=== PATIENT | female | born 1970 | race African-American/Black ===

== ENCOUNTER 2018-01-17 11:09 | Emergency (ER) | payer BC ==
--- NOTE | 2018-01-17 13:19 | EDM.PDOC ---
Scribed by Marie Gomez 01/17/18 [id number] for Grayson Dang MD ED HPI GENERAL MEDICAL PROBLEM - General Chief Complaint: FISHER CLAM Problem Stated Complaint: PG, SPOTTING Time Seen by Provider: 01/17/18 11:44 Source of Information: Reports: Patient, RN, RN Notes Reviewed History Limitations: Reports: No Limitations - History of Present Illness INITIAL COMMENTS - FREE TEXT/NARRATIVE: Patient is aG4,P3, 0-0, L3 with complaint of onset of spotting vaginal blood last evening. Patient states amount is like "dime size" on pad, but not every pad. Also small smear of blood on toilet paper after urination. Patient seen by Dr. Maria almost 2 weeks and had an ultrasound. LMP was 12-18-17. Denies nausea, vomiting,abdominal pain, cramps, contractions, diarrhea or constipation. Onset Date: 01/16/18 Severity: Mild - Related Data Allergies Allergy/AdvReac Type Severity Reaction Status Date / Time Penicillins Allergy Unknown Rash Verified 01/17/18 11:26 Home Meds: Home Meds Labetalol HCl [Labetalol] 60 mg PO BID 01/17/18 [History] Past Medical History Cardiovascular History: Reports: Hypertension FISHER CLAM History: Reports: - Past Surgical History Musculoskeletal Surgical History: Reports: Carpal Tunnel Social & Family History - Family History Family Medical History: Noncontributory - Tobacco Use Smoking Status *Q: Never Smoker - Caffeine Use Caffeine Use: Reports: None - Recreational Drug Use Recreational Drug Use: No ED ROS GENERAL - Review of Systems Review Of Systems: ROS reveals no pertinent complaints other than HPI. ED EXAM - Physical Exam Exam: See Below Exam Limited By: No Limitations General Appearance: Alert, WD/WN, No Apparent Distress Head: Atraumatic, Normocephalic Neck: Normal Inspection, Supple, Non-Tender, Full Range of Motion Respiratory/Chest: No Respiratory Distress, Lungs Clear, Normal Breath Sounds, No Accessory Muscle Use, Chest Non-Tender Cardiovascular: Normal Peripheral Pulses, Regular Rate, Rhythm, No Edema, No Gallop, No JVD, No Murmur, No Rub GI/Abdominal Exam: Normal Bowel Sounds, Soft, Non-Tender, No Organomegaly, No Distention, No Abnormal Bruit, No Mass, Pelvis Stable Rectal Exam: Deferred Back Exam: Normal Inspection, Full Range of Motion, NT Extremities: Normal Inspection, Normal Range of Motion, Non-Tender, Normal Capillary Refill, No Pedal Edema Neurological: Alert, Oriented, CN II-XII Intact, Normal Cognition, Normal Gait, Normal Reflexes, No Motor/Sensory Deficits Psychiatric: Normal Affect, Normal Mood Skin Exam: Warm, Dry, Intact, Normal Color, No Rash Course - Vital Signs Last Recorded V/S: Last Vital Signs Temp 36.8 C 01/17/18 11:21 Pulse 81 01/17/18 11:21 Resp 16 01/17/18 11:21 BP 173/98 H 01/17/18 11:21 Pulse Ox 100 01/17/18 11:21 - Orders/Labs/Meds Labs: Laboratory Tests 01/17/18 01/17/18 01/17/18 Range/Units 11:37 11:50 11:50 WBC 4.8 L (5.0-10.0) 10^3/uL RBC 4.10 L (4.2-5.4) 10^6/uL Hgb 12.2 (12.0-16.0) g/dL Hct 36.0 L (37.0-47.0) % MCV 87.8 (80-100) fL MCH 29.8 (27.0-34.0) pg MCHC 33.9 (33.0-35.0) g/dL Plt Count 211 (150-450) 10^3/uL Neut % (Auto) 65.1 (42.2-75.2) % Lymph % (Auto) 21.5 (20.5-50.1) % Bates % (Auto) 9.4 H (2-8) % Eos % (Auto) 3.6 H (1.0-3.0) % Baso % (Auto) 0.4 (0.0-1.0) % HCG, Quant (0-25) mIU/ml Beta HCG, Quant mIU/ml Urine Color Yellow (YELLOW) Urine Appearance Slightly cloudy (CLEAR) Urine pH 6.0 (5.0-9.0) Ur Specific [place] 1.010 (1.005-1.030) Urine Protein Negative (NEGATIVE) Urine Glucose (UA) Negative (NEGATIVE) Urine Ketones Negative (NEGATIVE) Urine Occult Blood Moderate H (NEGATIVE) Urine Nitrite Negative (NEGATIVE) Urine Bilirubin Negative (NEGATIVE) Urine Urobilinogen 0.2 (0.2-1.0) mg/dL Ur Leukocyte Esterase Negative (NEGATIVE) Urine RBC 0-5 /HPF Urine WBC 0-5 (0-5/HPF) /HPF Ur Epithelial Cells Moderate H /HPF Amorphous Sediment Rare (0/HPF) /HPF Urine Bacteria Rare (0-FEW/HPF) /HPF Urine Mucus Rare /LPF Urine Other Blood Type B POSITIVE 01/17/18 Range/Units 11:50 WBC (5.0-10.0) 10^3/uL RBC (4.2-5.4) 10^6/uL Hgb (12.0-16.0) g/dL Hct (37.0-47.0) % MCV (80-100) fL MCH (27.0-34.0) pg MCHC (33.0-35.0) g/dL Plt Count (150-450) 10^3/uL Neut % (Auto) (42.2-75.2) % Lymph % (Auto) (20.5-50.1) % Bates % (Auto) (2-8) % Eos % (Auto) (1.0-3.0) % Baso % (Auto) (0.0-1.0) % HCG, Quant > 1324 H (0-25) mIU/ml Beta HCG, Quant 94726 mIU/ml Urine Color (YELLOW) Urine Appearance (CLEAR) Urine pH (5.0-9.0) Ur Specific [place] (1.005-1.030) Urine Protein (NEGATIVE) Urine Glucose (UA) (NEGATIVE) Urine Ketones (NEGATIVE) Urine Occult Blood (NEGATIVE) Urine Nitrite (NEGATIVE) Urine Bilirubin (NEGATIVE) Urine Urobilinogen (0.2-1.0) mg/dL Ur Leukocyte Esterase (NEGATIVE) Urine RBC /HPF Urine WBC (0-5/HPF) /HPF Ur Epithelial Cells /HPF Amorphous Sediment (0/HPF) /HPF Urine Bacteria (0-FEW/HPF) /HPF Urine Mucus /LPF Urine Other Blood Type Departure - Departure Time of Disposition: 13:15 Disposition: Home, Self-Care 01 Condition: Good Clinical Impression: Bacterial vaginosis, Bleeding in early - Discharge Information Instructions: Threatened Miscarriage, [id number] Forms: ED Department Discharge Additional Instructions: RX: Metronidazole 500mg. Pelvic rest, no sexual activity until evaluated by your doctor in clinic. Call the clinic Friday morning to arrange follow up visit with Dr. Maria. Return to ER if you develop pelvic pain, heavy vaginal bleeding or other emergent concerns. I have read and agree with the documentation that has been completed regarding this visit. By signing this record, I attest that the documentation was completed in my physical presence and is an accurate record of the encounter.
== END 2018-01-17 13:34 | disposition home or self-care (01) ==
LOC: DL.ED 11:09
DX: O23.591 Infection of other part of genital tract in pregnancy, first trimester (principal); N76.0 Acute vaginitis; O09.511 Supervision of elderly primigravida, first trimester; O10.011 Pre-existing essential hypertension complicating pregnancy, first trimester; Z88.0 Allergy status to penicillin; Z3A.10 10 weeks gestation of pregnancy
CPT/HCPCS: 36415; 81001; 84702; 85025; 86900; 86901; 99284

== ENCOUNTER 2018-01-18 10:13 | Emergency (ER) | payer BC | END 2018-01-18 10:25 | disposition left against medical advice (07) | LOC: DL.ED 10:13 | DX: Z53.21 Procedure and treatment not carried out due to patient leaving prior to being seen by health care provider (principal) ==

== ENCOUNTER 2018-01-22 09:01 | Day surgery (SDC) | payer BC ==
[2018-01-22] MEDS ORDERED: Lidocaine 2% 20 ML MDV INJECT ONE (09:02)
[2018-01-22] MEDS ORDERED: Dexamethasone 4 MG/ML SDV IV ONE (09:02)
[2018-01-22] MEDS ORDERED: Ondansetron 4 MG/2 ML SDV IV ONE (09:02)
[2018-01-22] MEDS ORDERED: Ketorolac 30 MG/ML SDV IVPUSH ONE (09:02)
[2018-01-22] MEDS ORDERED: Midazolam 1 MG/ML 2 ML SDV IV ONE (09:02)
[2018-01-22] MEDS ORDERED: fentaNYL 100 MCG/2 ML SDV IV ONE (09:02)
[2018-01-22] MEDS ORDERED: Propofol 200 MG/20 ML SDV IV ONE (09:02)
[2018-01-22] MEDS ORDERED: Lactated Ringers 1,000 ML IV SCH (09:45)
[2018-01-22 09:46] LABS: ANION GAP 17.3
[2018-01-22] MEDS ORDERED: Oxytocin/Normal Saline 30 UNIT/500 ML BAG ONE (11:48)
[2018-01-22] MEDS ORDERED: Oxytocin/Normal Saline 30 UNIT/500 ML BAG IV SCH (11:49)
--- NOTE | 2018-01-22 14:22 | OR ---
DATE: 01/22/2018 PREOPERATIVE DIAGNOSES: demise at approximately 10 weeks gestation. POSTOPERATIVE DIAGNOSIS: demise at approximately 10 weeks gestation with pathology report pending. PROCEDURE: D and C with suction curettage. ESTIMATED BLOOD LOSS: Approximately 150 mL. COMPLICATIONS: None. ANESTHESIA: General. DESCRIPTION OF PROCEDURE: After the induction of general anesthesia and with the patient routinely prepped and draped in the usual fashion, the pelvic exam was again done. There was not any active vaginal bleeding at this time. The cervix was closed. The uterus was felt to be in the mid position and approximately 9 weeks' size or so. There were no adnexal masses. The single- tooth tenaculum was attached to the anterior lip of the cervix and the uterus was carefully sounded to approximately 9 cm. Now, the endocervical canal was very carefully and progressively dilated using the dilators. Now, the sharp curette was carefully introduced, and the curettage of the uterine cavity itself was commenced and I did get a moderate amount of tissue on the curettage. Great caution was taken to make sure that all aspects of the endometrial cavity were carefully and systematically curetted. All of the tissue was submitted to the pathologist. I did gently repeat the procedure again of course getting a slight amount of more tissue. Now because of the amount of tissue, we did elect to also do the suction curettage, and using a #8 curved curette the endometrial cavity was carefully and gently systematically curetted with suction curettage getting a slight to moderate more blood and tissue. All of the tissue was submitted to the pathologist. One last time, the uterine cavity was carefully and systematically curetted getting a small amount of tissue. IV intraoperative Pitocin was now begun. Uterine massage was done and I did repeat the bimanual exam before and it was unchanged from previously. Sponge count was reported as correct. As mentioned above, the estimated blood loss was approximately 150 mL. Instrument count was also reported as correct. All of the instruments were removed. There was no further bleeding. The patient tolerated the procedure well and went to the recovery room in good condition. We will keep in close contact with the patient postoperatively. Postoperative instructions have already been given to her and we will repeat those again at the time of discharge. [facility] /[id number]
== END 2018-01-22 14:25 | disposition home or self-care (01) ==
LOC: DL.SDS 09:01
PROVIDERS: ATTEND Obstetrics & Gynecology
DX: O36.4XX1 Maternal care for intrauterine death, fetus 1 (principal); I10 Essential (primary) hypertension; Z88.0 Allergy status to penicillin
CPT/HCPCS: 36415; 59812; 80051; J1100; J1885; J2250; J2405; J2590; J2704; J3010; J7120

== ENCOUNTER 2018-01-24 08:04 | Emergency (ER) | payer BC ==
[2018-01-24] MEDS ORDERED: Sodium Chloride 0.9% 10 ML Syringe FLUSH PRN (08:23)
[2018-01-24] MEDS ORDERED: Lactated Ringers 1,000 ML IV ONE (08:24)
[2018-01-24 09:12] LABS: ANION GAP 12.1; CHLORIDE,CL 98 mmol/L (101-111); SODIUM,NA 132 mmol/L (135-145)
[2018-01-24] MEDS ORDERED: Ketorolac 30 MG/ML SDV IVPUSH ONE (09:16)
[2018-01-24] MEDS ORDERED: HYDROmorphone 0.5 MG/0.5 ML Syringe IVPUSH ONE ×2 (09:16→09:45)
[2018-01-24] MEDS ORDERED: Misoprostol 100 MCG Tab PO ONE (10:13)
[2018-01-24] MEDS ORDERED: Misoprostol 400 MCG (4 X 100 MCG TAB) ONE (10:22)
--- NOTE | 2018-01-24 13:01 | EDM.PDOC ---
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 She unfortunately had a miscarriage earlier this week at about 10 weeks gestation. She had a D&C performed two days ago by Dr. Alvarado in T[employer] RECORDER [facility]PAIR[facility]. She states that intially, bleeding was at expected levels, but earlier this morning, bleeding increased as well as her pain. She tells the nurse and myself that she has changed her pad 3 times in the past 90 minutes. No fevers/chills, no nausea/vomiting. 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 , Other (See Below) Other OB/BYN History: D & C Musculoskeletal History: Reports: Other (See Below) Other Musculoskeletal History: bilateral heel spurs Neurological History: Reports: None Psychiatric History: Reports: None Endocrine/Metabolic History: Reports: None Hematologic History: Reports: None Immunologic History: Reports: None Oncologic (Cancer) History: Reports: None Dermatologic History: Reports: None - Infectious Disease History Infectious Disease History: Reports: None - Past Surgical History Head Surgeries/Procedures: Reports: None HEENT Surgical History: Reports: None Cardiovascular Surgical History: Reports: None GI Surgical History: Reports: None Musculoskeletal Surgical History: Reports: Carpal Tunnel Social & Family History - Family History Family Medical History: Noncontributory - Tobacco Use Smoking Status *Q: Never Smoker Second Hand Smoke Exposure: No - Caffeine Use Caffeine Use: Reports: None - Recreational Drug Use Recreational Drug Use: No ED ROS GENERAL - Review of Systems Review Of Systems: ROS reveals no pertinent complaints other than HPI. ED EXAM, GI/ABD - Physical Exam Exam: See Below Text/Narrative:: General: Hiram is a pleasant 47 year old woman in no acute distress. Oropharynx: mucous membranes tacky to moist, otherwise clear Heart: regular rate and rhythm Abdomen: soft, tender over suprapubic area : moderate amount of bleeding and large clot from vagina during speculum exam Course - Vital Signs Last Recorded V/S: Last Vital Signs Temp 36.8 C 01/24/18 09:53 Pulse 80 01/24/18 09:53 Resp 18 01/24/18 09:53 BP 147/87 H 01/24/18 09:53 Pulse Ox 99 01/24/18 09:53 - Orders/Labs/Meds Labs: Laboratory Tests 01/24/18 01/24/18 Range/Units 08:39 08:39 WBC 9.7 (5.0-10.0) 10^3/uL RBC 3.82 L (4.2-5.4) 10^6/uL Hgb 11.5 L (12.0-16.0) g/dL Hct 33.6 L (37.0-47.0) % MCV 88.0 (80-100) fL MCH 30.1 (27.0-34.0) pg MCHC 34.2 (33.0-35.0) g/dL Plt Count 174 (150-450) 10^3/uL Neut % (Auto) 87.5 H (42.2-75.2) % Lymph % (Auto) 5.8 L (20.5-50.1) % [place] % (Auto) 6.4 (2-8) % Eos % (Auto) 0.1 L (1.0-3.0) % Baso % (Auto) 0.2 (0.0-1.0) % Sodium 132 L (135-145) mmol/L Potassium 3.1 L (3.6-5.0) mmol/L Chloride 98 L (101-111) mmol/L Carbon Dioxide 25.0 (21.0-31.0) mmol/L Anion Gap 12.1 BUN 7 (7-18) mg/dL Creatinine 0.7 (0.6-1.3) mg/dL Est Cr Clr Drug Dosing 84.87 mL/min Estimated GFR (MDRD) > 60 BUN/Creatinine Ratio 10.00 Glucose 119 H (74-105) mg/dL Calcium 8.6 (8.4-10.2) mg/dl Total Bilirubin 0.7 (0.2-1.0) mg/dL AST 32 (10-42) IU/L ALT 23 (10-60) IU/L Alkaline Phosphatase 51 (42-121) IU/L Total Protein 6.7 (6.7-8.2) g/dl Albumin 3.8 (3.2-5.5) g/dl Globulin 2.9 Albumin/Globulin Ratio 1.31 Meds: Medications Discontinued Medications Generic Name Dose Route Start Last Admin Trade Name Freq PRN Reason Stop Dose Admin Hydromorphone HCl 0.5 mg 01/24/18 09:16 01/24/18 09:20 Dilaudid IVPUSH 01/24/18 09:17 0.5 mg ONETIME ONE Administration Hydromorphone HCl 0.5 mg 01/24/18 09:45 01/24/18 09:49 Dilaudid IVPUSH 01/24/18 09:46 0.5 mg ONETIME ONE Administration Lactated Ringer's 1,000 mls @ 999 mls/hr 01/24/18 08:24 01/24/18 08:39 Ringers, Lactated IV 01/24/18 09:24 999 mls/hr .BOLUS ONE Administration Ketorolac Tromethamine 30 mg 01/24/18 09:16 01/24/18 09:20 Toradol IVPUSH 01/24/18 09:17 30 mg ONETIME ONE Administration Misoprostol 200 mcg 01/24/18 10:13 01/24/18 10:27 Cytotec PO 01/24/18 10:14 200 mcg ONETIME ONE Administration Misoprostol Confirm 01/24/18 10:22 01/24/18 10:30 Cytotec Administered 01/24/18 10:23 Not Given Dose 400 mcg .ROUTE .STK-MED ONE Sodium Chloride 10 ml 01/24/18 08:23 01/24/18 08:39 Saline Flush FLUSH 10 ml ASDIRECTED PRN Administration Keep Vein Open - Re-Assessments/Exams Free Text/Narrative Re-Assessment/Exam: 01/24/18 12:59 Peripheral IV started, given 1 liter LR bolus, as well as 1mg IV hydromorphone and 30mg IV toradol. Contacted Dr. Alvarado by phone, he recommended giving 200mcg oral cytotec, and observing the patient for 2 hours. Patient had an increase in cramping after cytotec given, but continued to do well Departure - Departure Time of Disposition: 13:01 Disposition: Home, Self-Care 01 Clinical Impression: Vaginal bleeding - Discharge Information Referrals: PCP,None [Primary Care Provider] - Forms: ED Department Discharge Additional Instructions: Take cytotec (misoprostol) as directed on prescription. Follow up with Dr. Alvarado early next week if still having problems. Make sure you stay well hydrated - Problem List & Annotations (1) Vaginal bleeding SNOMED Code(s): 707749640 Code(s): N93.9 - ABNORMAL UTERINE AND VAGINAL BLEEDING, UNSPECIFIED Status : Acute Annotation/Comment:: vaginal bleeding secondary to D&C performed 48 hours ago to treat incomplete spontaneous - Problem List Review Problem List Initiated/Reviewed/Updated: Yes - Assessment/Plan Plan: 1. Dr. Alvarado recommended she take oral cytotec, 200mcg every 6 hours for the next two days 2. I will send her home with a small supply of oxycodone/APAP, 5/325, 1 tablet every 6 hours as needed 3. She will follow up early this next week in clinic with Dr. Alvarado should her symptoms continue
== END 2018-01-24 13:00 | disposition home or self-care (01) ==
LOC: DL.ED 08:04
DX: N93.9 Abnormal uterine and vaginal bleeding, unspecified (principal); I10 Essential (primary) hypertension; Z98.890 Other specified postprocedural states; Z88.0 Allergy status to penicillin; Z79.899 Other long term (current) drug therapy
CPT/HCPCS: 36415; 74019; 80053; 85025; 96361; 96374; 96375; 99284; A9270; J1170; J1885; J7050; J7120

== ENCOUNTER 2019-09-09 05:08 | Day surgery (SDC) | payer BC ==
[2019-09-09] MEDS ORDERED: fentaNYL 100 MCG/2 ML SDV IV ONE (05:09)
[2019-09-09] MEDS ORDERED: Midazolam 1 MG/ML 2 ML SDV IV ONE (05:09)
[2019-09-09] MEDS: Dextrose 5%-0.45% NaCl 1,000 ML IV SCH (06:12)
[2019-09-09] MEDS ORDERED: fentaNYL 100 MCG/2 ML SDV ONE (06:14)
[2019-09-09] MEDS ORDERED: Midazolam 1 MG/ML 2 ML SDV ONE (06:14)
[2019-09-09] MEDS: fentaNYL 100 MCG/2 ML SDV IV ONE ×3 (06:38→06:47)
[2019-09-09] MEDS: Midazolam 1 MG/ML 2 ML SDV IV ONE ×6 (06:39→06:45)
--- NOTE | 2019-09-09 09:36 | OR ---
DATE: 09/09/2019 PROCEDURE: Total colonoscopy. INSTRUMENT USED: PCF-H190DL Olympus video colonoscope. PREMEDICATIONS: Fentanyl 125 mcg intravenous, Versed 4 mg intravenous. The procedure was done under pulse oximetry, BP recording, and awake overnight monitor. INDICATION: Screening colonoscopic examination is done for detection of any polypoid lesions and removal, endoscopic hemostasis therapy if needed. DESCRIPTION OF PROCEDURE: Initial rectal exam was unremarkable. Rigid anoscopy was normal. The colonoscope was passed with ease up to the ileocecal area. Diverticulum was noted around the proximal descending colon. Photographs were taken of the normal-appearing cecum identified by landmarks of appendiceal orifice and double-bulged ileocecal folds. No bleeding was noted from any of the visualized areas at the commencement of the examination. The bowel preparation was found to be adequate, Dameron scale 2 in all the regions. No stricture. No vascular ectasia. No large isolated ulcerations seen. No evidence of diffuse inflammatory bowel disease in the form of friability, contact bleeding, or ulcerations. No polyp or tumor mass identified. Probing the proximal sides of folds and flexures using adequate distention and clearing up the stool material, withdrawal of the scope was made. Cecum to rectum time over 6 minutes. No bleeding was noted from any of the visualized areas at the completion of examination. IMPRESSION: Diverticulosis. The patient tolerated the procedure well. [facility] /[id number]
== END 2019-09-09 09:03 | disposition home or self-care (01) ==
LOC: DL.ENDO 05:08
PROVIDERS: ATTEND Internal Medicine Gastroenterology
DX: Z12.11 Encounter for screening for malignant neoplasm of colon (principal); K57.30 Diverticulosis of large intestine without perforation or abscess without bleeding; I10 Essential (primary) hypertension; E66.09 Other obesity due to excess calories; Z88.0 Allergy status to penicillin
CPT/HCPCS: 45378; J2250; J3010; J7042; G0121